=== PATIENT | male | born 2000 | race Two or more races ===

== ENCOUNTER 2024-06-11 22:42 | Emergency (ER) | payer OTHER ==
[~2024-06-11] VITALS: Ht 180.3 cm; Wt 65.8 kg
[2024-06-11 22:53] VITALS: BP 115/73; O2SAT 97
[2024-06-11] MEDS ORDERED: CLONAZEPAM0.5 MG (23:02)
[2024-06-11] MEDS ORDERED: FAMOtidine 10 MG/ML (4ML VIAL) IV ONE (23:15)
[2024-06-11] MEDS ORDERED: BUTALB/ACETAMINOPHEN/CAFFEINE 1 TAB TABLET PO ONE (23:15)
[2024-06-11 23:50] LABS: HEMOGLOBIN 15.3 g/dL (13-16.00); MEAN CELL VOLUME 83.3 fL (80.0-100.00); MEAN CORPUSCULAR HEMOGLOBIN 28.4 pg (27.00-32.0); MEAN CORPUSCULAR HGB CONC 34.1 g/dl (32.0-36.0); PLATELET COUNT 177 K/uL (150-450); RED CELL DISTRIBUTION WIDTH 14.6 % (11.5-14.5)
[2024-06-12] MEDS ORDERED: ESGIC 50-325-41 EACH PO (02:47)
== END 2024-06-12 03:11 ==
LOC: EDBD 22:43 → ER 22:43
PROVIDERS: General Practice
DX: R51.9 Headache, unspecified (principal); R07.9 Chest pain, unspecified; R11.0 Nausea; Z88.0 Allergy status to penicillin; Z20.822 Contact with and (suspected) exposure to COVID-19

== ENCOUNTER 2024-07-02 20:13 | Emergency (ER) | payer OTHER ==
[~2024-07-02] VITALS: Ht 180.3 cm; Wt 70.3 kg
[~2024-07-02 20:13] MED LIST: CLONAZEPAM0.5 MG; ESGIC 50-325-41 EACH PO
[2024-07-02] MEDS ORDERED: QUETIAPINE FUM100 MG PO (21:20)
[2024-07-03] MEDS ORDERED: ORPHENADRINE CITRATE 30 MG/ML AMPUL IM STA (02:06)
[2024-07-03] MEDS ORDERED: KETOROLAC TROMETHAMINE 60 MG VIAL IM STA (02:06)
[2024-07-03] MEDS ORDERED: ESGIC 50-325-41 EACH PO (02:15)
== END 2024-07-03 02:28 ==
LOC: ER 20:15
DX: G43.909 Migraine, unspecified, not intractable, without status migrainosus (principal)
CPT/HCPCS: 96372; 99282; J1885; J2360

== ENCOUNTER 2024-11-15 08:45 | Emergency (ER) | payer OTHER ==
[~2024-11-15] VITALS: Ht 180.3 cm; Wt 64.4 kg
[~2024-11-15 08:45] MED LIST changes: +QUETIAPINE FUM100 MG PO
== END 2024-11-15 12:03 | disposition home or self-care (01) ==
LOC: ER 08:46
DX: R07.0 Pain in throat (principal); Z20.822 Contact with and (suspected) exposure to COVID-19; F41.9 Anxiety disorder, unspecified; Z88.0 Allergy status to penicillin

== ENCOUNTER 2025-05-17 06:13 | Emergency (ER) | payer OTHER ==
[~2025-05-17] VITALS: Ht 152.4 cm; Wt 70.3 kg
[2025-05-17] MEDS ORDERED: ORPHENADRINE CITRATE 30 MG/ML AMPUL IM ONE (07:15)
[2025-05-17] MEDS ORDERED: KETOROLAC TROMETHAMINE 60 MG VIAL IM ONE ×2 (07:15→07:43)
[2025-05-17] MEDS ORDERED: DEXAMETHASONE SODIUM PHOSPHATE 4 MG/ML VIAL IM ONE (07:15)
[2025-05-17] MEDS ORDERED: NORFLEX100MG PO (07:21)
[2025-05-17] MEDS ORDERED: IBU400 MG PO (07:21)
[2025-05-17] MEDS ORDERED: ORPHENADRINE CITRATE 30 MG/ML AMPUL ONE (07:42)
[2025-05-17] MEDS ORDERED: DEXAMETHASONE SODIUM PHOSPHATE 4 MG/ML VIAL ONE (07:43)
== END 2025-05-17 08:33 | disposition home or self-care (01) ==
LOC: ER 06:13
DX: M94.0 Chondrocostal junction syndrome [Tietze] (principal); F32.9 Major depressive disorder, single episode, unspecified; Z88.0 Allergy status to penicillin

== ENCOUNTER 2025-07-11 11:36 | Emergency (ER) | payer OTHER ==
[~2025-07-11] VITALS: Ht 180.3 cm; Wt 70.8 kg
[~2025-07-11 11:36] MED LIST changes: +IBU400 MG PO; +NORFLEX100MG PO
[2025-07-11] MEDS ORDERED: ATIVAN0.5 M1 PO (12:02)
[2025-07-11] MEDS ORDERED: CLONAZEPAM0.5 M1 PO (12:03)
[2025-07-11] MEDS ORDERED: BUSPIRONE HCL5 MG PO (12:04)
[2025-07-11] MEDS ORDERED: RISPERDAL3 MG (12:04)
[2025-07-11] MEDS ORDERED: DEPAKOTE ER500 MG PO (12:04)
[2025-07-11] MEDS ORDERED: KETOROLAC TROMETHAMINE 30 MG VIAL IM STA (13:26)
[2025-07-11] MEDS ORDERED: ORPHENADRINE CITRATE 30 MG/ML AMPUL IM STA (13:26)
[2025-07-11] MEDS ORDERED: DEXAMETHASONE SODIUM PHOSPHATE 4 MG/ML VIAL IM STA (13:26)
[2025-07-11] MEDS ORDERED: ORPHENADRINE CITRATE 30 MG/ML AMPUL ONE (15:05)
[2025-07-11] MEDS ORDERED: KETOROLAC TROMETHAMINE 30 MG VIAL ONE (15:05)
[2025-07-11] MEDS ORDERED: DEXAMETHASONE SODIUM PHOSPHATE 4 MG/ML VIAL ONE (15:06)
[2025-07-11] MEDS ORDERED: NORFLEX100MG PO (19:19)
[2025-07-11] MEDS ORDERED: MEDROLPACK PO (19:19)
== END 2025-07-11 19:33 | disposition home or self-care (01) ==
LOC: ER 11:37
DX: S49.82XA Other specified injuries of left shoulder and upper arm, initial encounter (principal); W18.39XA Other fall on same level, initial encounter; Y93.89 Activity, other specified; Y92.012 Bathroom of single-family (private) house as the place of occurrence of the external cause; Z88.0 Allergy status to penicillin; F41.8 Other specified anxiety disorders; S29.8XXA Other specified injuries of thorax, initial encounter; S79.812A Other specified injuries of left hip, initial encounter

== ENCOUNTER → 2025-08-03 | Emergency (ER) | payer OTHER ==
[~2025-08-03] VITALS: Ht 170.2 cm; Wt 63.5 kg
[~2025-08-03] MED LIST changes: +ACETAMINOPHEN 500 MG GEL..CAP PO ONE; +ACETAMINOPHEN500 M1 PO; +ATIVAN0.5 M1 PO; +BUSPIRONE HCL5 MG PO; +CETIRIZINE HCL 5 MG/5 ML ML PO ONE; +CETIRIZINE HCL 5MG/5ML BLIST.PACK PO ONE; +CLONAZEPAM0.5 M1 PO; +DEPAKOTE ER500 MG PO; +GILTUSS COUGH-118 M1 PO; +MEDROLPACK PO; +OSEL75CA PO; +OSELTAMIVIR PHOSPHATE 75 MG CAPSULE PO ONE; +RISPERDAL3 MG
[2025-08-03 20:51] LABS: BASO % 0.2 % (0.1-1.2); EOS # 0.06 (0.04-0.54); EOS % 0.6 % (0.7-7.0); LYMPH # 1.59 (1.18-3.74); LYMPH % 15.1 % (19.3-53.1); MEAN PLATELET VOLUME 12.10 fl (9.4-12.4); MONO # 0.64 (0.24-0.82); MONO % 6.1 % (4.7-12.5); NEUT # 8.16 (1.56-6.13); NEUT % 77.6 % (34.0-71.1); RED CELL DISTRIBUTION WIDTH 12.3 % (11.6-14.4)
[2025-08-03 21:21] LABS: COVID-19 AG NEGATIVE (NEGATIVE)
== END | disposition home or self-care (01) ==
LOC: ER 15:22
PROVIDERS: Preventive Medicine Public Health & General Preventive Medicine
DX: J10.1 Influenza due to other identified influenza virus with other respiratory manifestations (principal); B34.9 Viral infection, unspecified; Z88.0 Allergy status to penicillin; Z20.822 Contact with and (suspected) exposure to COVID-19